=== PATIENT | female | born 1960 | race Two or more races ===

== ENCOUNTER 2019-03-02 17:17 | Emergency (ER) | payer MEDICARE ==
--- NOTE | 2019-03-02 19:20 | CR ---
Indication: Cough. Congestion. Technique: PA and lateral views the chest. Comparison: None Findings: The heart is normal in size. The lungs are hyperinflated. Mild diffusely increased interstitial opacities are identified bilaterally. No focal infiltrate, pleural effusion, or pneumothorax is identified. Impression: No focal infiltrate identified Dictated by Nneka Sofia MD @ Mar 02 2019 7:16PM Signed by Dr. Nneka Sofia @ Mar 02 2019 7:18PM
--- NOTE | 2019-03-02 19:23 | EDM.PDOC ---
ED HPI GENERAL MEDICAL PROBLEM - General Chief Complaint: ENT Problem Stated Complaint: EAR PAIN Time Seen by Provider: 03/02/19 18:42 Source of Information: Reports: Patient History Limitations: Reports: No Limitations - History of Present Illness INITIAL COMMENTS - FREE TEXT/NARRATIVE: HISTORY AND PHYSICAL: History of present illness: Patient is a 58-year-old female who presents to the ED today with concern of bilateral ear pain. Patient states she has been having right ear pain over the past several weeks but has ignored this. Patient states she has had drainage out of the right ear. Patient states starting yesterday she began having left ear pain as well. Patient states she has taken [id number] ibuprofen without relief of symptoms. Patient denies any other symptoms or concerns. Patient denies fever, chills, chest pain, shortness of breath, or cough. Denies headache, neck stiff ness, change in vision, syncope, or near syncope. Denies nausea, vomiting, abdominal pain, diarrhea, constipation, or dysuria. Has not noted any blood in urine or stool. Patient has been eating and drinking appropriately. Review of systems: As per history of present illness and below otherwise all systems reviewed and negative. Past medical history: As per history of present illness and as reviewed below otherwise noncontributory. Surgical history: As per history of present illness and as reviewed below otherwise noncontributory. Social history: See social history for further information Family history: As per history of present illness and as reviewed below otherwise noncontributory. Physical exam: General: Patient is alert, oriented, and in no acute distress. Patient sitting comfortably on exam table. HEENT: Atraumatic, normocephalic, pupils equal and reactive bilaterally, negative for conjunctival pallor or scleral icterus, mucous membranes moist, left TM is erythematous and bulging, right TM is not erythematous but does have a perforation., Throat clear, neck supple, nontender, trachea midline. No drooling or trismus noted. No meningeal signs. No hot potato voice noted. Lungs: Clear to auscultation, breath sounds equal bilaterally, chest nontender. Heart: S1S2, regular rate and rhythm without overt murmur Abdomen: Soft, nondistended, nontender. Negative for masses or hepatosplenomegaly. Negative for costovertebral tenderness. Pelvis: Stable nontender. Genitourinary: Deferred. Rectal: Deferred. Skin: Intact, warm, dry. No lesions or rashes noted. Extremities: Atraumatic, negative for cords or calf pain. Neurovascular unremarkable. Neuro: Awake, alert, oriented. Cranial nerves II through XII unremarkable. Cerebellum unremarkable. Motor and sensory unremarkable throughout. Exam nonfocal. Notes: Discussed importance for follow-up with a primary care provider. Voices understanding and is agreeable to plan of care. Denies any further questions or concerns at this time. Diagnostics: Influenza, Strep Therapeutics: None Prescription: Tramadol #10 Amoxicillin Impression: Left acute otitis media Right TM perforation Plan: 1. Take medication as prescribed. You can also alternate ibuprofen and Tylenol as directed for pain and discomfort. 2. Follow-up with your primary care provider as discussed. Return to the ED as needed and as discussed. Definitive disposition and diagnosis as appropriate pending reevaluation and review of above. Bilateral ears Pain Score (Numeric/FACES): 8 - Related Data Allergies Allergy/AdvReac Type Severity Reaction Status Date / Time morphine Allergy Nausea Verified 03/02/19 18:02 Home Meds: Home Meds Albuterol [Ventolin HFA] 1 puff .XX ASDIRECTED 03/02/19 [History] Amoxicillin 1,000 mg PO BID 7 Days #28 tab 03/02/19 [Rx] Aspirin 81 mg PO DAILY 03/02/19 [History] Fluticasone/Salmeterol [Advair 250-50 Diskus] 1 each IH ASDIRECTED 03/02/19 [ History] Nitroglycerin [Nitrostat] 0.4 mg SL ASDIRECTED 03/02/19 [History] Omeprazole 20 mg PO ONETIME 03/02/19 [History] Pramipexole [Mirapex] 0.25 mg PO BID 03/02/19 [History] Tocilizumab [Actemra] 162 mg SQ ASDIRECTED 03/02/19 [History] Venlafaxine HCl [Venlafaxine ER] 150 mg PO ASDIRECTED 03/02/19 [History] atorvaSTATin [Lipitor] 40 mg PO BEDTIME 03/02/19 [History] oxyCODONE 10 mg PO ASDIRECTED 03/02/19 [History] predniSONE [Prednisone] 5 mg PO ASDIRECTED 03/02/19 [History] traMADol HCl [Tramadol HCl] 50 mg PO Q6H PRN #10 tablet 03/02/19 [Rx] Past Medical History Cardiovascular History: Reports: NH, Stents Respiratory History: Reports: Asthma Musculoskeletal History: Reports: Arthritis, RA - Infectious Disease History Infectious Disease History: Reports: MRSA - Past Surgical History HEENT Surgical History: Reports: Tonsillectomy GI Surgical History: Reports: Appendectomy, Bariatric Procedure, Cholecystectomy Musculoskeletal Surgical History: Reports: Arthroscopic Knee, Hip Replacement, Knee Replacement Social & Family History - Family History Family Medical History: Noncontributory - Tobacco Use Smoking Status *Q: Current Every Day Smoker Years of Tobacco use: 30 Packs/Tins Daily: 0.1 - Caffeine Use Caffeine Use: Reports: None, Coffee - Recreational Drug Use Recreational Drug Use: No ED ROS GENERAL - Review of Systems Review Of Systems: Comprehensive ROS is negative, except as noted in HPI. ED EXAM, GENERAL - Physical Exam Exam: See Below (see dictation) Course - Vital Signs Last Recorded V/S: Last Vital Signs Temp 98.1 F 03/02/19 18:08 Pulse 82 03/02/19 18:08 Resp 16 03/02/19 18:08 BP 140/82 03/02/19 18:08 Pulse Ox 97 03/02/19 18:08 - Orders/Labs/Meds Orders: Active Orders 24 hr Category Date Time Status Chest 2V [CR] Stat Exams 03/02/19 18:47 Taken CULTURE STREP A CONFIRMATION [RM] Stat Lab 03/02/19 18:40 Results STREP SCRN A RAPID W CULT CONF [RM] Stat Lab 03/02/19 18:40 Results Departure - Departure Time of Disposition: 19:21 Disposition: Home, Self-Care 01 Clinical Impression: Otitis media Qualifiers: Otitis media type: suppurative Chronicity: acute Laterality: left Recurrence: not specified as recurrent Spontaneous tympanic membrane rupture: without spontaneous rupture Qualified Code(s): H66.002 - Acute suppurative otitis media without spontaneous rupture of ear drum, left ear Tympanic membrane perforation Qualifiers: Laterality: right Qualified Code(s): H72.91 - Unspecified perforation of tympanic membrane, right ear - Discharge Information Prescriptions: Amoxicillin 1,000 mg PO BID 7 Days #28 tab traMADol HCl [Tramadol HCl] 50 mg PO Q6H PRN #10 tablet PRN Reason: Pain (Severe 7-10) Referrals: Oscar Hewitt MD [Primary Care Provider] - Additional Instructions: The following information is given to patients seen in the emergency department who are being discharged to home. This information is to outline your options for follow-up care. We provide all patients seen in our emergency department with a follow-up referral. The need for follow-up, as well as the timing and circumstances, are variable depending upon the specifics of your emergency department visit. If you don't have a primary care physician on staff, we will provide you with a referral. We always advise you to contact your personal physician following an emergency department visit to inform them of the circumstance of the visit and for follow-up with them and/or the need for any referrals to a consulting specialist. The emergency department will also refer you to a specialist when appropriate. This referral assures that you have the opportunity for follow-up care with a specialist. All of these measure are taken in an effort to provide you with optimal care, which includes your follow-up. Under all circumstances we always encourage you to contact your private physician who remains a resource for coordinating your care. When calling for follow-up care, please make the office aware that this follow-up is from your recent emergency room visit. If for any reason you are refused follow-up, please contact the [facility] Emergency Department at and asked to speak to the emergency department charge nurse. [facility] [address] [place] [id number] [facility] [address] [place] [id number] 1. Take medication as prescribed. You can also alternate ibuprofen and Tylenol as directed for pain and discomfort. 2. Follow-up with your primary care provider as discussed. Return to the ED as needed and as discussed. Sepsis Event Note - Evaluation Sepsis Screening Result: No Definite Risk - Focused Exam Vital Signs: Vital Signs Temp Pulse Resp BP Pulse Ox 03/02/19 18:08 98.1 F 82 16 140/82 97 Date Exam was Performed: 03/02/19 Time Exam was Performed: 19:20 - My Orders Last 24 Hours: My Active Orders 03/02/19 18:40 CULTURE STREP A CONFIRMATION [RM] Stat STREP SCRN A RAPID W CULT CONF [RM] Stat 03/02/19 18:47 Chest 2V [CR] Stat - Assessment/Plan Last 24 Hours: My Active Orders 03/02/19 18:40 CULTURE STREP A CONFIRMATION [RM] Stat STREP SCRN A RAPID W CULT CONF [RM] Stat 03/02/19 18:47 Chest 2V [CR] Stat
== END 2019-03-02 19:40 | disposition home or self-care (01) ==
LOC: MW.ED 17:17
DX: H66.002 Acute suppurative otitis media without spontaneous rupture of ear drum, left ear (principal); H72.91 Unspecified perforation of tympanic membrane, right ear; F17.210 Nicotine dependence, cigarettes, uncomplicated; I25.2 Old myocardial infarction; J45.909 Unspecified asthma, uncomplicated; M06.9 Rheumatoid arthritis, unspecified; M19.90 Unspecified osteoarthritis, unspecified site; Z98.890 Other specified postprocedural states; Z90.49 Acquired absence of other specified parts of digestive tract; Z98.84 Bariatric surgery status; Z79.899 Other long term (current) drug therapy
CPT/HCPCS: 71046; 71046-26; 87081; 87804; 87880-QW; 99283; 99283-25

== ENCOUNTER 2019-11-29 19:58 | Emergency (ER) | payer MEDICARE, MEDICAID, OTHER ==
[2019-11-29] MEDS ORDERED: Aspirin 81 MG Tab.Chew PO ONE (20:32)
[2019-11-29] MEDS ORDERED: Sodium Chloride 0.9% 2.5 ML Syringe FLUSH PRN (20:32)
[2019-11-29] MEDS ORDERED: Sodium Chloride 0.9% 10 ML Syringe FLUSH PRN (20:32)
[2019-11-29 21:37] LABS: CARBON DIOXIDE,CO2 26.7 mmol/L (21.0-32.0); POTASSIUM,K 3.7 mmol/L (3.5-5.1)
--- NOTE | 2019-11-29 21:58 | CR ---
HISTORY: Shortness of breath and CHF. TECHNIQUE: One view of the chest. COMPARISON: 03/02/2019. FINDINGS: Enlargement of the cardiac silhouette. There is no focal lung infiltrate or pulmonary edema. No pneumothorax or pleural effusion. Degenerative changes of the shoulder regions. IMPRESSION: 1. Enlargement of the cardiac silhouette. 2. No focal lung infiltrate or pulmonary edema. Dictated by Miguel Monroe MD @ 11/29/2019 9:56:09 PM Dictated by: Miguel Monroe MD @ 11/29/2019 21:56:42 (Electronically Signed)
[2019-11-29] MEDS ORDERED: Furosemide 40 MG/4 ML VIAL IVPUSH ONE (22:44)
--- NOTE | 2019-11-30 00:38 | EDM.PDOC ---
ED HPI GENERAL MEDICAL PROBLEM - General Chief Complaint: Cardiovascular Problem Stated Complaint: SICK Time Seen by Provider: 11/29/19 20:18 - History of Present Illness INITIAL COMMENTS - FREE TEXT/NARRATIVE: CHIEF COMPLAINT(S): "Cold for 2 weeks." HISTORY OF PRESENT ILLNESS: This is a 59-year-old woman with a past medical history of rheumatoid arthritis and prior history of CAD status post stent over a decade ago who comes to the emergency department with a chief complaint of "cold for 2 weeks." The patient states that for approximately 2 weeks now she has been experiencing a cold for which she describes she has been experiencing a cough with yellowish sputum. She denies any runny nose, earache, sore throat. She denies any contact with anybody with coronavirus. In addition over the last 2 weeks he has been experiencing chest discomfort especially when walking. She states that she is also experiencing shortness of breath especially on walking and orthopnea. She that states that she has had 2 increase her number of pillows. She states that she has lower extremity edema and feels like her legs are very tight. She states that she is never had this much edema before. She denies any abdominal edema. She denies any prior history of DVT or PE. She denies any recent travel or surgeries. REVIEW OF SYSTEMS: Constitutional: Denies fever, chills. Eyes: Denies eye pain Ears, Nose, Mouth, & Throat: Denies earache, sore throat, runny nose Cardiovascular: Positive for chest discomfort, lower extremity edema Respiratory: Positive for shortness of breath, orthopnea, exertional dyspnea Gastrointestinal: Denies Nausea, vomiting, diarrhea, hematochezia. Genitourinary: Denies hematuria Skin:Denies a rash Neurological: Denies blurred vision Psychiatric: Denies depression PAST MEDICAL HISTORY: As per history of present illness and as reviewed below otherwise noncontributory. SURGICAL HISTORY: As per history of present illness and as reviewed below otherwise noncontributory. SOCIAL HISTORY: As per history of present illness and as reviewed below otherwise noncontributory. FAMILY HISTORY: As per history of present illness and as reviewed below otherwise noncontributory. EXAMINATION OF ORGAN SYSTEMS/BODY AREAS: Constitutional: Blood pressure was 127/83, heart rate 84, respiratory rate 18 with an oxygen saturation 98% on room air. General: Well-appearing woman who is in no acute distress Psychiatric: Appropriate mood and affect. Eyes: No scleral icterus or conjunctival erythema ENMT: Moist mucous membranes. No pharyngeal erythema bilateral clear nasal drainage. Cardiovascular: Regular, rate, and rhythym. No gallops, murmurs, or rubs. Bilateral upper extremity pulses symmetric and intact. No JVD. There is 3+ pitting edema to the mid thigh respiratory: Lungs clear to auscultation bilaterally. No wheezes, rales, or rhonchi. Speaking in full sentences Gastrointestinal: Soft, non-tender, non-distended. Normoactive bowel sounds Genitourinary: No suprapubic tenderness Musculoskeletal: Normal range of motion. Skin: No lesions or abrasions. Neurological: Alert, GCS 15 MEDICAL DECISION MAKING AND COURSE IN THE ED WITH INTERPRETATION/REVIEW OF DIAGNOSTIC STUDIES: This is a 59-year-old woman with a past medical history of rheumatoid arthritis and prior history of CAD who comes to the emergency department with 2 weeks of yellow productive cough and chest discomfort associated with orthopnea and exertional dyspnea with an exam revealing pretty severe pitting edema. In the setting that this patient has a history of CAD I am concerned about ACS, CHF, pneumonia. Will obtain labs including CBC, CMP, troponin, magnesium, type and screen. Will obtain a chest x-ray. We also obtain an EKG. Given that the patient will likely need to be admitted I will obtain a coronavirus swab. Twelve-lead EKG interpreted by myself. Normal sinus rhythm at a rate of 83beats per minute. Normal axis. PA interval is 145ms. QRS duration is 145ms. ST segments are normal without elevations or depressions. There is a left bundle branch block throughout. There are no prior EKGs in our system to correlate with. This EKG does not meet scar Bosa criteria. Interpretation: Sinus rhythm with left bundle-branch block Laboratory: CBC reveals a microcytic anemia with a hemoglobin of 7.4 and hematocrit of 26.3. There is thrombocytosis with a platelet count of 572. INR is 1.34. CMP reveals transaminitis with an AST of 109 and ALT of 152. Troponin x1 is 0.065. BNP is 1614. Coronavirus is negative. The radiological images were viewed by myself along with reading the report from the radiologist. Chest x-ray reveals cardiomegaly without any evidence of pulmonary edema or lung infiltrate. After labs I discussed the results with the patient. At this time given her anemia I did have a discussion with the patient. She denies any vaginal bleeding, hematemesis, melena, or hematochezia. She states that she does have a history of chronic anemia. She does not take any supplements for this. At this time I did discuss with her that given her new onset CHF and elevated troponin like to transfer her for further work-up. She was amenable to this plan. Given concern of new left bundle branch block with increased troponin this could be a STEMI equivalent even though the EKG does not meet scar Bosa criteria. Therefore I contacted [facility] and spoke with the pathology laboratory technologist on-call Dr. Valladares who stated that this is not a STEMI equivalent. [facility] is not accepting patients at this time. Therefore I called [facility] and spoke with pathology laboratory technologist Dr. Miller who would like the patient transferred and admitted under the hospitalist. I did speak to the hospitalist Dr. Varela who accepted the patient. At this time with discussion with [facility] will not start the patient on heparin given the patient's anemia. DISPOSITION: The patient was transferred to [facility] CONDITION: Serious PROCEDURES: None FINAL IMPRESSION(S)/DIAGNOSES: 1. Acute new onset CHF 2. Acute elevated troponin, possible ACS 3. Chronic anemia Chris Magana M.D. - Related Data Allergies Allergy/AdvReac Type Severity Reaction Status Date / Time gabapentin Allergy Hives Verified 11/29/19 20:15 morphine Allergy Nausea Verified 11/29/19 20:15 Home Meds: Home Meds Albuterol [Ventolin HFA] 1 puff .XX ASDIRECTED 03/02/19 [History] Aspirin 81 mg PO DAILY 03/02/19 [History] Fluticasone Propion/Salmeterol [Advair 250-50 Diskus] 1 each IH ASDIRECTED 03/02/19 [History] Nitroglycerin [Nitrostat] 0.4 mg SL ASDIRECTED 03/02/19 [History] Omeprazole 20 mg PO ONETIME 03/02/19 [History] Pramipexole [Mirapex] 0.25 mg PO BID 03/02/19 [History] Tocilizumab [Actemra] 162 mg SQ ASDIRECTED 03/02/19 [History] Venlafaxine HCl [Venlafaxine ER] 75 mg PO ASDIRECTED 03/02/19 [History] atorvaSTATin [Lipitor] 40 mg PO BEDTIME 03/02/19 [History] predniSONE [Prednisone] 5 mg PO ASDIRECTED 03/02/19 [History] Past Medical History Cardiovascular History: Reports: MA, Stents Respiratory History: Reports: Asthma, COPD Genitourinary History: Reports: None Musculoskeletal History: Reports: Arthritis, RA Neurological History: Reports: None Psychiatric History: Reports: None Endocrine/Metabolic History: Reports: None Hematologic History: Reports: None Oncologic (Cancer) History: Reports: None Dermatologic History: Reports: None - Infectious Disease History Infectious Disease History: Reports: Chicken Pox, MRSA - Past Surgical History HEENT Surgical History: Reports: Tonsillectomy GI Surgical History: Reports: Appendectomy, Bariatric Procedure, Cholecystectomy Other GI Surgeries/Procedures: pt reports mesh in stomache for hole in stomach Musculoskeletal Surgical History: Reports: Arthroscopic Knee, Hip Replacement, Knee Replacement Social & Family History - Family History Family Medical History: Noncontributory - Tobacco Use Smoking Status *Q: Current Every Day Smoker Years of Tobacco use: 40 Packs/Tins Daily: 1 - Caffeine Use Caffeine Use: Reports: None, Coffee - Recreational Drug Use Recreational Drug Type: Reports: Marijuana/Hashish ED ROS GENERAL - Review of Systems Review Of Systems: See Below ED EXAM, GENERAL - Physical Exam Exam: See Below Course - Vital Signs Last Recorded V/S: Last Vital Signs Temp 34.4 C L 11/29/19 22:26 Pulse 85 11/29/19 22:26 Resp 22 H 11/29/19 22:26 BP 121/81 11/29/19 22:26 Pulse Ox 99 11/29/19 22:26 - Orders/Labs/Meds Orders: Active Orders 24 hr Category Date Time Status Cardiac Monitoring [RC] . DIRECTED Care 11/29/19 20:32 Active EKG 12 Lead [EKG Documentation Completion] [RC] STAT Care 11/29/19 21:24 Active Pulse Oximetry [RC] ASDIRECTED Care 11/29/19 20:32 Active Sodium Chloride 0.9% [Saline Flush] Med 11/29/19 20:32 Active 10 ml FLUSH ASDIRECTED PRN Sodium Chloride 0.9% [Saline Flush] Med 11/29/19 20:32 Active 2.5 ml FLUSH ASDIRECTED PRN Saline Lock Insert [OM.PC] Stat Oth 11/29/19 20:32 Ordered Medication Orders Sodium Chloride (Saline Flush) 10 ml FLUSH ASDIRECTED PRN PRN Reason: Keep Vein Open Sodium Chloride (Saline Flush) 2.5 ml FLUSH ASDIRECTED PRN PRN Reason: Keep Vein Open Labs: Laboratory Tests 11/29/19 11/29/19 11/29/19 Range/Units 20:43 20:53 20:53 WBC 7.45 (4.0-11.0) K/uL RBC 3.94 L (4.30-5.90) M/uL Hgb 7.4 L (12.0-16.0) g/dL Hct 26.3 L (36.0-46.0) % MCV 66.8 L (80.0-98.0) fL MCH 18.8 L (27.0-32.0) pg MCHC 28.1 L (31.0-37.0) g/dL RDW Std Deviation 42.6 (28.0-62.0) fl RDW Coeff of Conor 18 H (11.0-15.0) % Plt Count 572 H (150-400) K/uL MPV 8.80 (7.40-12.00) fL Neut % (Auto) 69.8 (48.0-80.0) % Lymph % (Auto) 14.4 L (16.0-40.0) % [place] % (Auto) 13.4 (0.0-15.0) % Eos % (Auto) 2.0 (0.0-7.0) % Baso % (Auto) 0.4 (0.0-1.5) % Neut # (Auto) 5.2 (1.4-5.7) K/uL Lymph # (Auto) 1.1 (0.6-2.4) K/uL [place] # (Auto) 1.0 H (0.0-0.8) K/uL Eos # (Auto) 0.2 (0.0-0.7) K/uL Baso # (Auto) 0.0 (0.0-0.1) K/uL Nucleated RBC % 0.7 /100WBC Nucleated RBCs # 0 K/uL INR 1.34 Sodium (136-145) mmol/L Potassium (3.5-5.1) mmol/L Chloride (98-107) mmol/L Carbon Dioxide (21.0-32.0) mmol/L BUN (7.0-18.0) mg/dL Creatinine (0.6-1.0) mg/dL Est Cr Clr Drug Dosing mL/min Estimated GFR (MDRD) ml/min Glucose (74-106) mg/dL Calcium (8.5-10.1) mg/dL Total Bilirubin (0.2-1.0) mg/dL AST (15-37) IU/L ALT (14-63) IU/L Alkaline Phosphatase (46-116) U/L Troponin I (0.000-0.056) ng/mL B-Natriuretic Peptide (<100) PG/ML Total Protein (6.4-8.2) g/dL Albumin (3.4-5.0) g/dL Globulin (2.6-4.0) g/dL Albumin/Globulin Ratio (0.9-1.6) SARS-CoV-2 RNA (BREANA) NEGATIVE (NEGATIVE) Blood Type Antibody Screen 11/29/19 11/29/19 11/29/19 Range/Units 20:53 20:59 20:59 WBC (4.0-11.0) K/uL RBC (4.30-5.90) M/uL Hgb (12.0-16.0) g/dL Hct (36.0-46.0) % MCV (80.0-98.0) fL MCH (27.0-32.0) pg MCHC (31.0-37.0) g/dL RDW Std Deviation (28.0-62.0) fl RDW Coeff of Conor (11.0-15.0) % Plt Count (150-400) K/uL MPV (7.40-12.00) fL Neut % (Auto) (48.0-80.0) % Lymph % (Auto) (16.0-40.0) % [place] % (Auto) (0.0-15.0) % Eos % (Auto) (0.0-7.0) % Baso % (Auto) (0.0-1.5) % Neut # (Auto) (1.4-5.7) K/uL Lymph # (Auto) (0.6-2.4) K/uL [place] # (Auto) (0.0-0.8) K/uL Eos # (Auto) (0.0-0.7) K/uL Baso # (Auto) (0.0-0.1) K/uL Nucleated RBC % /100WBC Nucleated RBCs # K/uL INR Sodium 137 (136-145) mmol/L Potassium 3.7 (3.5-5.1) mmol/L Chloride 103 (98-107) mmol/L Carbon Dioxide 26.7 (21.0-32.0) mmol/L BUN 18 (7.0-18.0) mg/dL Creatinine 1.0 (0.6-1.0) mg/dL Est Cr Clr Drug Dosing 58.11 mL/min Estimated GFR (MDRD) 57.1 ml/min Glucose 84 (74-106) mg/dL Calcium 7.5 L (8.5-10.1) mg/dL Total Bilirubin 0.6 (0.2-1.0) mg/dL AST 109 H (15-37) IU/L ALT 152 H (14-63) IU/L Alkaline Phosphatase 202 H (46-116) U/L Troponin I 0.065 H* (0.000-0.056) ng/mL B-Natriuretic Peptide 1614 H (<100) PG/ML Total Protein 6.3 L (6.4-8.2) g/dL Albumin 3.1 L (3.4-5.0) g/dL Globulin 3.2 (2.6-4.0) g/dL Albumin/Globulin Ratio 1.0 (0.9-1.6) SARS-CoV-2 RNA (BREANA) (NEGATIVE) Blood Type A POSITIVE Antibody Screen NEGATIVE Meds: Medications Generic Name Dose Route Start Last Admin Trade Name Freq PRN Reason Stop Dose Admin Sodium Chloride 10 ml 11/29/19 20:32 Saline Flush FLUSH ASDIRECTED PRN Keep Vein Open Sodium Chloride 2.5 ml 11/29/19 20:32 Saline Flush FLUSH ASDIRECTED PRN Keep Vein Open Discontinued Medications Generic Name Dose Route Start Last Admin Trade Name Freq PRN Reason Stop Dose Admin Aspirin 324 mg 11/29/19 20:32 11/29/19 20:45 Aspirin PO 11/29/19 20:33 324 mg ONETIME ONE Administration Furosemide 40 mg 11/29/19 22:44 11/29/19 23:10 Lasix IVPUSH 11/29/19 22:45 40 mg NOW ONE Administration Departure - Departure Time of Disposition: 00:36 Disposition: DC/Tfer to Other 70 Reason for Transfer *Q: Other (New Onset CHF) Condition: Serious Clinical Impression: Elevated troponin, Left bundle branch block (LBBB), Transaminitis Congestive heart failure Qualifiers: Heart failure type: unspecified Heart failure chronicity: acute Qualified Code(s): I50.9 - Heart failure, unspecified Referrals: Veronica Joya MD [Primary Care Provider] - Sepsis Event Note (ED) - Evaluation Sepsis Screening Result: No Definite Risk - Focused Exam Vital Signs: Vital Signs Temp Pulse Resp BP Pulse Ox 11/29/19 22:26 34.4 C L 85 22 H 121/81 99 11/29/19 22:18 83 132/83 99 11/29/19 22:03 81 18 134/78 99 11/29/19 21:49 81 18 133/82 99 11/29/19 21:34 87 20 123/93 H 97 11/29/19 21:15 84 18 127/83 98 11/29/19 20:19 36.4 C 93 24 H 151/94 H 98 - My Orders Last 24 Hours: My Active Orders 11/29/19 20:32 Cardiac Monitoring [RC] . DIRECTED Pulse Oximetry [RC] ASDIRECTED Sodium Chloride 0.9% [Saline Flush] 10 ml FLUSH ASDIRECTED PRN Sodium Chloride 0.9% [Saline Flush] 2.5 ml FLUSH ASDIRECTED PRN Saline Lock Insert [OM.PC] Stat 11/29/19 21:24 EKG 12 Lead [EKG Documentation Completion] [RC] STAT - Assessment/Plan Last 24 Hours: My Active Orders 11/29/19 20:32 Cardiac Monitoring [RC] . DIRECTED Pulse Oximetry [RC] ASDIRECTED Sodium Chloride 0.9% [Saline Flush] 10 ml FLUSH ASDIRECTED PRN Sodium Chloride 0.9% [Saline Flush] 2.5 ml FLUSH ASDIRECTED PRN Saline Lock Insert [OM.PC] Stat 11/29/19 21:24 EKG 12 Lead [EKG Documentation Completion] [RC] STAT
== END 2019-11-29 23:20 | disposition other institution (70) ==
LOC: MW.ED 19:58
DX: I50.9 Heart failure, unspecified (principal); R79.89 Other specified abnormal findings of blood chemistry; R74.01 Elevation of levels of liver transaminase levels; D64.9 Anemia, unspecified; I44.7 Left bundle-branch block, unspecified; J44.9 Chronic obstructive pulmonary disease, unspecified; I25.10 Atherosclerotic heart disease of native coronary artery without angina pectoris; I25.2 Old myocardial infarction; M06.9 Rheumatoid arthritis, unspecified; F17.210 Nicotine dependence, cigarettes, uncomplicated; Z95.5 Presence of coronary angioplasty implant and graft; Z88.5 Allergy status to narcotic agent; Z88.8 Allergy status to other drugs, medicaments and biological substances; Z79.82 Long term (current) use of aspirin; Z79.899 Other long term (current) drug therapy; Z20.828 Contact with and (suspected) exposure to other viral communicable diseases
CPT/HCPCS: 36415; 51702; 71045; 80053; 83880; 84484; 85025; 85610; 86850; 86900; 86901; 93005; 96374; 99285; A9270; J1940; U0002; 93010

== ENCOUNTER 2020-11-01 23:22 | Emergency (ER) | payer MEDICARE ==
[2020-11-02] MEDS ORDERED: Sodium Chloride 0.9% 2.5 ML Syringe FLUSH PRN (00:26)
[2020-11-02] MEDS ORDERED: Sodium Chloride 0.9% 10 ML Syringe FLUSH PRN (00:26)
[2020-11-02] MEDS ORDERED: Furosemide 40 MG/4 ML VIAL IVPUSH ONE (00:27)
[2020-11-02] MEDS ORDERED: Ondansetron 4 MG/2 ML SDV IVPUSH ONE (00:52)
[2020-11-02 01:24] LABS: BLOOD UREA NITROGEN,BUN 13 mg/dL (7.0-18.0); CARBON DIOXIDE,CO2 26.6 mmol/L (21.0-32.0); CHLORIDE,CL 103 mmol/L (98-107); GLUCOSE RANDOM 102 mg/dL (74-106); POTASSIUM,K 4.2 mmol/L (3.5-5.1); SODIUM,NA 138 mmol/L (136-145)
[2020-11-02] MEDS ORDERED: Iopamidol 755 MG/ML 500 ML Multipack Bottle IVPUSH ONE (01:45)
--- NOTE | 2020-11-02 01:45 | CR ---
INDICATION: Shortness of breath. COMPARISON: 11/29/2027 chest radiograph. FINDINGS/IMPRESSION: Portable AP chest radiograph. There is mild enlargement of the cardiac silhouette, similar to the previous exam. Pulmonary vasculature is borderline congested. No pleural effusions are noted. No focal lung consolidation is seen. Degenerative changes are again seen in both shoulders. Dictated by Jem Fowler MD @ 11/02/2020 1:42:28 AM Dictated by: Jem Fowler MD @ 11/02/2020 01:43:31 (Electronically Signed)
--- NOTE | 2020-11-02 02:52 | CT ---
INDICATION: Shortness of breath with elevated D-dimer. COMPARISON: Chest radiograph from earlier today. TECHNIQUE: CT examination of the chest was performed with the uneventful intravenous administration of 75 cc of Isovue 370 while 1.0 and 1.5 mm thick axial sections were obtained through the pulmonary arteries. Please note that all CT scans at this facility use dose modulation, iterative reconstruction, and/or weight-based dosing when appropriate to reduce radiation dose to as low as reasonably achievable. FINDINGS: : There is no sign of pulmonary embolism, with normal enhancement and branching of the pulmonary arteries. There is mild patchy ground-glass pulmonary density with a perihilar distribution consistent with mild congestive failure. There is no sign of any pleural effusion. There is no sign of mediastinal or hilar mass or adenopathy. The heart is mildly enlarged with four-chamber dilatation. There is severe LAD and moderate LCX and RCA coronary calcification. There is age appropriate appearance of the thoracic aorta and ascending great vessels. There is no sign of supraclavicular or axillary mass or adenopathy. The visualized superior liver, spleen, pancreas, and adrenals are normal in appearance. There is a nonobstructive 3 millimeter calculus in the interpolar left kidney. There is mild dilatation of the collecting systems in both kidneys along with mild dilatation of the proximal ureters bilaterally, suggesting bilateral hydronephrosis and hydroureter. There are several lines of surgical kenia in the gastric fundus consistent with gastric bypass surgery. A small bowl anastamosis is seen in the left upper quadrant with no sign of stricture. There is a small hiatal hernia. The distal stomach, the rest of the loops of small bowel, and colon in the superior abdomen are normal in appearance. Surgical clips are seen in the right upper quadrant from cholecystectomy. There is no sign of biliary ductal dilatation. There is moderate disc degenerative disease in the inferior thoracic spine. There is mild scoliosis of the inferior thoracic spine convex towards the right. IMPRESSION: No sign of pulmonary embolism. Mild patchy ground-glass pulmonary density with a perihilar distribution consistent with mild congestive failure. Mild cardiomegaly with triple-vessel coronary calcification. Status post gastric bypass surgery. Status post cholecystectomy with no sign of biliary ductal dilatation. Findings of bilateral hydronephrosis and proximal hydroureter. Mild nonobstructive left nephrolithiasis. Please note that all CT scans at this facility use dose modulation, iterative reconstruction, and/or weight-based dosing when appropriate to reduce radiation dose to as low as reasonably achievable. Dictated by Yasmany Galindo MD @ 11/02/2020 2:50:56 AM (Electronically Signed)
--- NOTE | 2020-11-02 03:43 | EDM.PDOC ---
ED HPI GENERAL MEDICAL PROBLEM - General Chief Complaint: Respiratory Problem Stated Complaint: SHORT OF BREATH, HEADACHE, ABDOMINAL PAIN Time Seen by Provider: 11/01/20 23:53 - History of Present Illness INITIAL COMMENTS - FREE TEXT/NARRATIVE: HISTORY AND PHYSICAL: History of present illness: This is a 60-year-old female who has a history significant for hypertension, congestive heart failure, on Lasix, who presents ER today secondary to increased shortness of breath over the last 2 to 3 days with generalized malaise, cough, congestion, vomiting, and diffuse body aches. Patient reports she has had some increased wound to her lower extremities. Patient denies any sore throat. Patient reports tactile fevers. Patient denies any shakes or chills. Patient denies any abdominal pain or discomfort. Patient denies any chest pain or pressure however she reports occasional discomfort with deep inspiration and cough. Patient reports no exertional chest pain. Patient reports that she does have shortness of breath with exertion. Patient reports that she has been compliant with all her medications. Review of systems: As per history of present illness and below otherwise all systems reviewed and negative. Past medical history: As per history of present illness and as reviewed below otherwise noncontributory. Surgical history: As per history of present illness and as reviewed below otherwise noncontributory. Social history: No reported history of drug abuse. Family history: As per history of present illness and as reviewed below otherwise noncontributory. Physical exam: This patient was seen and evaluated during the 2019 SARS-CoV-2 novel coronavirus pandemic period. Community viral transmission is ongoing at time of this encounter and the emergency department is operating under pandemic response procedures. Constitutional: Patient is oriented to person, place, and time. Appears well- developed and well-nourished. No distress. HEENT: Moist mucous membranes Head: Normocephalic and atraumatic Eyes: Right eye exhibits no discharge. Left eye exhibits no discharge. No scleral icterus Neck: Normal range of motion. No tracheal deviation present. Cardiovascular: Normal rate and regular rhythm. Pulmonary: Effort normal, no respiratory distress. No wheezing or rhonchi. Patient does have some bibasilar rales. Abdominal: No distention Musculoskeletal: Normal range of motion. 1-2+ bipedal edema bilaterally and equal Neurologic: Alert and oriented to person, place and time. Skin: [place], warm and dry. Psychiatric: Normal mood and affect. Behavior is normal. Judgment and thought content normal. Nursing note and vital signs have been reviewed Diagnostics: CBC, CMP, troponin, Covid all within normal limits. Patient's BNP is markedly elevated however does appear that she has chronically elevated BNP in the past. Therapeutics: Lasix 80 mg IV Assessment and plan: 60-year-old female with a history significant for congestive heart failure who presents ER today with increased shortness of breath. Patient's Covid test is negative. Patient does have sinus symptoms consistent with a viral illness as well. Patient's chest x-ray did show some increased interstitial markings. Patient's D-dimer was elevated so CTA was obtained which was consistent with CHF. While in the ED the patient was given Lasix 80 mg IV given her symptoms of lower extremity edema and bibasilar rales. Patient reports that she has had a significant amount of urinary output while she was here in the ED and feels exceedingly better. Patient has been resting flat in bed comfortably. Patient will be instructed to follow-up with her primary care physician for further evaluation of her congestive heart failure and her diuretic doses. At this time, the patient is requesting to be discharged home and does not feel that she needs to be here any further. I have recommended that she states that we can continue diuresing her but she feels much improved and would like to be discharged with her is here in the waiting room. Reassessment at the time of disposition demonstrates that the patient is in no acute distress. The patient has remained stable throughout the entire ED visit and is without objective evidence for acute process requiring urgent intervention or hospitalization. The patient is stable for discharge, counseling is provided as documented above, discussed symptomatic treatment and specific conditions for return. I have spoken with the patient/caregiver and discussed todays findings, in addition to providing specific details for the plan of care. Questions are answered and there is agreement with the plan. Definitive disposition and diagnosis as appropriate pending reevaluation and review of above. Chest Pain Score (Numeric/FACES): 7 - Related Data Allergies Allergy/AdvReac Type Severity Reaction Status Date / Time gabapentin Allergy Hives Verified 11/29/19 20:15 morphine Allergy Nausea Verified 11/29/19 20:15 Home Meds: Home Meds Albuterol [Ventolin HFA] 1 puff .XX ASDIRECTED 03/02/19 [History] Aspirin 81 mg PO DAILY 03/02/19 [History] Fluticasone Propion/Salmeterol [Advair 250-50 Diskus] 1 each IH ASDIRECTED 03/02/19 [History] Nitroglycerin [Nitrostat] 0.4 mg SL ASDIRECTED 03/02/19 [History] Omeprazole 20 mg PO ONETIME 03/02/19 [History] Pramipexole [Mirapex] 0.25 mg PO BID 03/02/19 [History] Tocilizumab [Actemra] 162 mg SQ ASDIRECTED 03/02/19 [History] Venlafaxine HCl [Venlafaxine ER] 75 mg PO ASDIRECTED 03/02/19 [History] atorvaSTATin [Lipitor] 40 mg PO BEDTIME 03/02/19 [History] predniSONE [Prednisone] 5 mg PO ASDIRECTED 03/02/19 [History] Past Medical History Cardiovascular History: Reports: CT, Stents Respiratory History: Reports: Asthma, COPD Genitourinary History: Reports: None Musculoskeletal History: Reports: Arthritis, RA Neurological History: Reports: None Psychiatric History: Reports: None Endocrine/Metabolic History: Reports: None Hematologic History: Reports: None Oncologic (Cancer) History: Reports: None Dermatologic History: Reports: None - Infectious Disease History Infectious Disease History: Reports: Chicken Pox, MRSA - Past Surgical History HEENT Surgical History: Reports: Tonsillectomy GI Surgical History: Reports: Appendectomy, Bariatric Procedure, Cholecystectomy Other GI Surgeries/Procedures: pt reports mesh in stomache for hole in stomach Musculoskeletal Surgical History: Reports: Arthroscopic Knee, Hip Replacement, Knee Replacement Social & Family History - Family History Family Medical History: No Pertinent Family History - Tobacco Use Tobacco Use Status *Q: Current Every Day Tobacco User Years of Tobacco use: 20 Packs/Tins Daily: 0.5 - Caffeine Use Caffeine Use: Reports: Coffee, Soda - Recreational Drug Use Recreational Drug Use: No ED ROS GENERAL - Review of Systems Review Of Systems: See Below ED EXAM, GENERAL - Physical Exam Exam: See Below #1 Interpretation EKG Interpretation Comments: EKG: As interpreted by ER physician: Deann: Nonspecific ST-T wave abnormalities Normal axis No evidence of ST elevation CT Normal sinus rhythm heart rate of 87 November 02, 2020 12:12 AM Course - Vital Signs Last Recorded V/S: Last Vital Signs Temp 98.2 F 11/02/20 01:53 Pulse 95 11/02/20 02:50 Resp 20 11/02/20 01:53 BP 127/80 11/02/20 02:50 Pulse Ox 98 11/02/20 02:50 - Orders/Labs/Meds Orders: Active Orders 24 hr Category Date Time Status Sodium Chloride 0.9% [Saline Flush] Med 11/02/20 00:26 Active 10 ml FLUSH ASDIRECTED PRN Sodium Chloride 0.9% [Saline Flush] Med 11/02/20 00:26 Active 2.5 ml FLUSH ASDIRECTED PRN Isolation [COMM] Routine Oth 11/02/20 00:26 Active Saline Lock Insert [OM.PC] Stat Ot 11/02/20 00:26 Ordered Medication Orders Sodium Chloride (Sodium Chloride 0.9% 10 Ml Syringe) 10 ml FLUSH ASDIRECTED PRN PRN Reason: Keep Vein Open Last Admin: 11/02/20 00:57 Dose: 10 ml Documented by: MASOOD Sodium Chloride (Sodium Chloride 0.9% 2.5 Ml Syringe) 2.5 ml FLUSH ASDIRECTED PRN PRN Reason: Keep Vein Open Last Admin: 11/02/20 00:57 Dose: 2.5 ml Documented by: MASOOD Labs: Laboratory Tests 11/02/20 11/02/20 11/02/20 Range/Units 00:41 00:48 00:48 WBC 12.88 H (4.0-11.0) K/uL RBC 4.00 L (4.30-5.90) M/uL Hgb 9.9 L (12.0-16.0) g/dL Hct 31.1 L (36.0-46.0) % MCV 77.8 L (80.0-98.0) fL MCH 24.8 L (27.0-32.0) pg MCHC 31.8 (31.0-37.0) g/dL RDW Std Deviation 41.7 (28.0-62.0) fl RDW Coeff of Conor 15 (11.0-15.0) % Plt Count 564 H (150-400) K/uL MPV 9.10 (7.40-12.00) fL Neut % (Auto) 79.8 (48.0-80.0) % Lymph % (Auto) 9.0 L (16.0-40.0) % Hall % (Auto) 10.0 (0.0-15.0) % Eos % (Auto) 0.9 (0.0-7.0) % Baso % (Auto) 0.3 (0.0-1.5) % Neut # (Auto) 10.3 H (1.4-5.7) K/uL Lymph # (Auto) 1.2 (0.6-2.4) K/uL Hall # (Auto) 1.3 H (0.0-0.8) K/uL Eos # (Auto) 0.1 (0.0-0.7) K/uL Baso # (Auto) 0.0 (0.0-0.1) K/uL D-Dimer, Quantitative 0.69 H (0.0-0.50) mg/L FEU Sodium (136-145) mmol/L Potassium (3.5-5.1) mmol/L Chloride (98-107) mmol/L Carbon Dioxide (21.0-32.0) mmol/L BUN (7.0-18.0) mg/dL Creatinine (0.6-1.0) mg/dL Est Cr Clr Drug Dosing mL/min Estimated GFR (MDRD) ml/min Glucose (74-106) mg/dL Calcium (8.5-10.1) mg/dL Total Bilirubin (0.2-1.0) mg/dL AST (15-37) IU/L ALT (14-63) IU/L Alkaline Phosphatase (46-116) U/L Troponin I (0.000-0.056) ng/mL B-Natriuretic Peptide (<100) PG/ML Total Protein (6.4-8.2) g/dL Albumin (3.4-5.0) g/dL Globulin (2.6-4.0) g/dL Albumin/Globulin Ratio (0.9-1.6) SARS-CoV-2 RNA (BREANA) NEGATIVE (NEGATIVE) 11/02/20 11/02/20 Range/Units 00:48 00:48 WBC (4.0-11.0) K/uL RBC (4.30-5.90) M/uL Hgb (12.0-16.0) g/dL Hct (36.0-46.0) % MCV (80.0-98.0) fL MCH (27.0-32.0) pg MCHC (31.0-37.0) g/dL RDW Std Deviation (28.0-62.0) fl RDW Coeff of Conor (11.0-15.0) % Plt Count (150-400) K/uL MPV (7.40-12.00) fL Neut % (Auto) (48.0-80.0) % Lymph % (Auto) (16.0-40.0) % Hall % (Auto) (0.0-15.0) % Eos % (Auto) (0.0-7.0) % Baso % (Auto) (0.0-1.5) % Neut # (Auto) (1.4-5.7) K/uL Lymph # (Auto) (0.6-2.4) K/uL Hall # (Auto) (0.0-0.8) K/uL Eos # (Auto) (0.0-0.7) K/uL Baso # (Auto) (0.0-0.1) K/uL D-Dimer, Quantitative (0.0-0.50) mg/L FEU Sodium 138 (136-145) mmol/L Potassium 4.2 (3.5-5.1) mmol/L Chloride 103 (98-107) mmol/L Carbon Dioxide 26.6 (21.0-32.0) mmol/L BUN 13 (7.0-18.0) mg/dL Creatinine 1.0 (0.6-1.0) mg/dL Est Cr Clr Drug Dosing 57.41 mL/min Estimated GFR (MDRD) 56.9 ml/min Glucose 102 (74-106) mg/dL Calcium 7.6 L (8.5-10.1) mg/dL Total Bilirubin 0.6 (0.2-1.0) mg/dL AST 21 (15-37) IU/L ALT 22 (14-63) IU/L Alkaline Phosphatase 156 H (46-116) U/L Troponin I < 0.050 (0.000-0.056) ng/mL B-Natriuretic Peptide 2413 H (<100) PG/ML Total Protein 6.3 L (6.4-8.2) g/dL Albumin 2.9 L (3.4-5.0) g/dL Globulin 3.4 (2.6-4.0) g/dL Albumin/Globulin Ratio 0.9 (0.9-1.6) SARS-CoV-2 RNA (BREANA) (NEGATIVE) Meds: Medications Generic Name Dose Route Start Last Admin Trade Name Freq PRN Reason Stop Dose Admin Sodium Chloride 10 ml 11/02/20 00:26 11/02/20 00:57 Sodium Chloride 0.9% 10 Ml Syringe FLUSH 10 ml ASDIRECTED PRN Administration Keep Vein Open Sodium Chloride 2.5 ml 11/02/20 00:26 11/02/20 00:57 Sodium Chloride 0.9% 2.5 Ml Syringe FLUSH 2.5 ml ASDIRECTED PRN Administration Keep Vein Open Discontinued Medications Generic Name Dose Route Start Last Admin Trade Name Freq PRN Reason Stop Dose Admin Furosemide 80 mg 11/02/20 00:27 11/02/20 00:56 Furosemide 40 Mg/4 Ml Vial IVPUSH 11/02/20 00:28 80 mg NOW ONE Administration Iopamidol 75 ml 11/02/20 01:45 11/02/20 02:28 Iopamidol 755 Mg/Ml 500 Ml Multipack Bottle IVPUSH 11/02/20 01:46 75 ml ONETIME ONE Administration Ondansetron HCl 4 mg 11/02/20 00:52 11/02/20 00:56 Ondansetron 4 Mg/2 Ml Sdv IVPUSH 11/02/20 00:53 4 mg ONETIME ONE Administration Departure - Departure Time of Disposition: 03:59 Disposition: Home, Self-Care 01 Condition: Good Clinical Impression: Congestive heart failure Qualifiers: Heart failure type: unspecified Heart failure chronicity: acute Qualified Code(s): I50.9 - Heart failure, unspecified - Discharge Information Instructions: Heart Failure, Self Care, [id number], Heart Failure Exacerbation Referrals: Veronica Joya MD [Primary Care Provider] - Forms: ED Department Discharge Additional Instructions: You were seen and evaluated in ER today secondary to shortness of breath. Your test results and your CAT scan were indicative of increased fluid around your lungs. You were given an extra dose of Lasix here in the ED and it appears to have assisted with diuresis and helping you urinate. Your oxygen level currently is 98% on room air. Please make an appointment to see your family doctor in the next 1 to 2 days to be reevaluated so they can address your diuretics. Please return to the ED if you start having increased shortness of breath or any new or concerning symptoms. The following information is given to patients seen in the emergency department who are being discharged to home. This information is to outline your options for follow-up care. We provide all patients seen in our emergency department with a follow-up referral. The need for follow-up, as well as the timing and circumstances, are variable depending upon the specifics of your emergency department visit. If you don't have a primary care physician on staff, we will provide you with a referral. We always advise you to contact your personal physician following an emergency department visit to inform them of the circumstance of the visit and for follow-up with them and/or the need for any referrals to a consulting specialist. The emergency department will also refer you to a specialist when appropriate. This referral assures that you have the opportunity for follow-up care with a specialist. All of these measure are taken in an effort to provide you with optimal care, which includes your follow-up. Under all circumstances we always encourage you to contact your private physician who remains a resource for coordinating your care. When calling for follow-up care, please make the office aware that this follow-up is from your recent emergency room visit. If for any reason you are refused follow-up, please contact the [facility] Emergency Department at and asked to speak to the emergency department charge nurse. [facility] [address] [place] [id number] [address] Sepsis Event Note (ED) - Focused Exam Vital Signs: Vital Signs Temp Pulse Resp BP Pulse Ox 11/02/20 02:50 95 127/80 98 11/02/20 01:53 98.2 F 91 20 119/73 96 11/02/20 01:00 93 22 H 140/92 H 98 11/02/20 00:04 96 20 141/89 H 97 11/01/20 23:28 98.9 F 89 28 H 138/94 H 100 - My Orders Last 24 Hours: My Active Orders 11/02/20 00:26 Sodium Chloride 0.9% [Saline Flush] 10 ml FLUSH ASDIRECTED PRN Sodium Chloride 0.9% [Saline Flush] 2.5 ml FLUSH ASDIRECTED PRN Isolation [COMM] Routine Saline Lock Insert [OM.PC] Stat - Assessment/Plan Last 24 Hours: My Active Orders 11/02/20 00:26 Sodium Chloride 0.9% [Saline Flush] 10 ml FLUSH ASDIRECTED PRN Sodium Chloride 0.9% [Saline Flush] 2.5 ml FLUSH ASDIRECTED PRN Isolation [COMM] Routine Saline Lock Insert [OM.PC] Stat
== END 2020-11-02 04:20 | disposition home or self-care (01) ==
LOC: MW.ED 23:22
DX: I11.0 Hypertensive heart disease with heart failure (principal); I50.9 Heart failure, unspecified; J44.9 Chronic obstructive pulmonary disease, unspecified; I25.2 Old myocardial infarction; M06.9 Rheumatoid arthritis, unspecified; Z72.0 Tobacco use; Z88.5 Allergy status to narcotic agent; Z88.8 Allergy status to other drugs, medicaments and biological substances; Z79.82 Long term (current) use of aspirin; Z79.899 Other long term (current) drug therapy; Z20.822 Contact with and (suspected) exposure to COVID-19
CPT/HCPCS: 36415; 71045; 71275; 80053; 83880; 84484; 85025; 85379; 87804; 93005; 96374; 96375; 99285; J1940; J2405; Q9967; U0002

== ENCOUNTER 2020-11-28 17:39 | Emergency (ER) | payer MEDICARE ==
[2020-11-28] MEDS ORDERED: fentaNYL 50 MCG/ML SDV IVPUSH ONE ×2 (19:59→22:05)
--- NOTE | 2020-11-28 20:01 | EDM.PDOC ---
ED HPI GENERAL MEDICAL PROBLEM - General Chief Complaint: Abdominal Pain Stated Complaint: UPPER ABDOMINAL PAIN Time Seen by Provider: 11/28/20 19:24 Source of Information: Reports: Patient History Limitations: Reports: No Limitations - History of Present Illness INITIAL COMMENTS - FREE TEXT/NARRATIVE: Patient is a 60-year-old female history of gastric bypass presents today for upper abdominal pain. States pain started on Sunday has progressively got worse. Pain is made worse with eating. She also complains of some nausea but no vomiting. Denies fevers or chills. She also states the pain is abated makes difficult for her to breathe is causing some shortness of breath. She does not have a cough. She does not have any fevers diarrhea constipation or urinary symptoms. Bilateral Abdominal Pain Score (Numeric/FACES): 10 - Related Data Allergies Allergy/AdvReac Type Severity Reaction Status Date / Time gabapentin Allergy Hives Verified 11/28/20 19:15 morphine Allergy Nausea Verified 11/28/20 19:15 Home Meds: Home Meds Albuterol [Ventolin HFA] 1 puff .XX ASDIRECTED 03/02/19 [History] Aspirin 81 mg PO DAILY 03/02/19 [History] Fluticasone Propion/Salmeterol [Advair 250-50 Diskus] 1 each IH ASDIRECTED 03/02/19 [History] Nitroglycerin [Nitrostat] 0.4 mg SL ASDIRECTED 03/02/19 [History] Omeprazole 20 mg PO ONETIME 03/02/19 [History] Pramipexole [Mirapex] 0.25 mg PO BID 03/02/19 [History] Tocilizumab [Actemra] 162 mg SQ ASDIRECTED 03/02/19 [History] Venlafaxine HCl [Venlafaxine ER] 75 mg PO ASDIRECTED 03/02/19 [History] atorvaSTATin [Lipitor] 40 mg PO BEDTIME 03/02/19 [History] predniSONE [Prednisone] 5 mg PO ASDIRECTED 03/02/19 [History] Past Medical History Cardiovascular History: Reports: NE, Stents Respiratory History: Reports: Asthma, COPD Genitourinary History: Reports: None Musculoskeletal History: Reports: Arthritis, RA Neurological History: Reports: None Psychiatric History: Reports: None Endocrine/Metabolic History: Reports: None Hematologic History: Reports: None Oncologic (Cancer) History: Reports: None Dermatologic History: Reports: None - Infectious Disease History Infectious Disease History: Reports: Chicken Pox, MRSA - Past Surgical History HEENT Surgical History: Reports: Tonsillectomy GI Surgical History: Reports: Appendectomy, Bariatric Procedure, Cholecystectomy Other GI Surgeries/Procedures: pt reports mesh in stomache for hole in stomach Musculoskeletal Surgical History: Reports: Arthroscopic Knee, Hip Replacement, Knee Replacement Social & Family History - Family History Family Medical History: No Pertinent Family History - Tobacco Use Tobacco Use Status *Q: Current Every Day Tobacco User Years of Tobacco use: 30 Packs/Tins Daily: 0.5 - Caffeine Use Caffeine Use: Reports: Coffee - Recreational Drug Use Recreational Drug Use: Yes Drug Use in Last 12 Months: Yes Recreational Drug Type: Reports: Marijuana/Hashish ED ROS GENERAL - Review of Systems Review Of Systems: See Below Constitutional: Reports: No Symptoms HEENT: Reports: No Symptoms Respiratory: Reports: No Symptoms Cardiovascular: Reports: No Symptoms Endocrine: Reports: No Symptoms GI/Abdominal: Reports: Abdominal Pain : Reports: No Symptoms Musculoskeletal: Reports: No Symptoms Skin: Reports: No Symptoms Neurological: Reports: No Symptoms Psychiatric: Reports: No Symptoms Hematologic/Lymphatic: Reports: No Symptoms Immunologic: Reports: No Symptoms ED EXAM, GI/ABD - Physical Exam Exam: See Below Exam Limited By: No Limitations General Appearance: Alert, WD/WN, No Apparent Distress Eyes: Bilateral: EOMI Ears: Normal External Exam Throat/Mouth: Normal Inspection Neck: Normal Inspection Respiratory/Chest: No Respiratory Distress, Lungs Clear, Normal Breath Sounds Cardiovascular: Normal Peripheral Pulses, Regular Rate, Rhythm GI/Abdominal Exam: Normal Bowel Sounds, Tender (epigastric area) Back Exam: Normal Inspection Extremities: Normal Inspection, Normal Range of Motion Neurological: Alert, Oriented, Normal Cognition, Normal Gait #1 Interpretation EKG Date: 11/28/20 Time: 20:18 Rhythm: NSR Rate (Beats/Min): 88 QRS: Wide Course - Vital Signs Last Recorded V/S: Last Vital Signs Temp 98.7 F 11/28/20 19:24 Pulse 95 11/28/20 19:24 Resp 17 11/28/20 19:24 BP 151/103 H 11/28/20 19:24 Pulse Ox 97 11/28/20 19:24 - Orders/Labs/Meds Orders: Active Orders 24 hr Category Date Time Status Furosemide [Lasix] Med 11/28/20 23:36 Once 40 mg IVPUSH NOW ONE Labs: Laboratory Tests 11/28/20 11/28/20 11/28/20 Range/Units 19:40 19:40 20:20 WBC 7.81 (4.0-11.0) K/uL RBC 4.12 L (4.30-5.90) M/uL Hgb 10.1 L (12.0-16.0) g/dL Hct 31.6 L (36.0-46.0) % MCV 76.7 L (80.0-98.0) fL MCH 24.5 L (27.0-32.0) pg MCHC 32.0 (31.0-37.0) g/dL RDW Std Deviation 44.3 (28.0-62.0) fl RDW Coeff of Conor 16 H (11.0-15.0) % Plt Count 410 H (150-400) K/uL MPV 9.70 (7.40-12.00) fL Neut % (Auto) 66.8 (48.0-80.0) % Lymph % (Auto) 20.5 (16.0-40.0) % Gregory % (Auto) 10.4 (0.0-15.0) % Eos % (Auto) 1.7 (0.0-7.0) % Baso % (Auto) 0.6 (0.0-1.5) % Neut # (Auto) 5.2 (1.4-5.7) K/uL Lymph # (Auto) 1.6 (0.6-2.4) K/uL Gregory # (Auto) 0.8 (0.0-0.8) K/uL Eos # (Auto) 0.1 (0.0-0.7) K/uL Baso # (Auto) 0.1 (0.0-0.1) K/uL Nucleated RBC % 0.0 /100WBC Nucleated RBCs # 0 K/uL Sodium 140 (136-145) mmol/L Potassium 3.9 (3.5-5.1) mmol/L Chloride 103 (98-107) mmol/L Carbon Dioxide 26.0 (21.0-32.0) mmol/L BUN 16 (7.0-18.0) mg/dL Creatinine 0.8 (0.6-1.0) mg/dL Est Cr Clr Drug Dosing 71.76 mL/min Estimated GFR (MDRD) > 60.0 ml/min Glucose 105 (74-106) mg/dL Lactic Acid 1.8 (0.4-2.0) mmol/L Calcium 8.2 L (8.5-10.1) mg/dL Phosphorus 3.7 (2.6-4.7) mg/dL Magnesium 1.8 (1.8-2.4) mg/dL Total Bilirubin 0.7 (0.2-1.0) mg/dL AST 37 (15-37) IU/L ALT 48 (14-63) IU/L Alkaline Phosphatase 170 H (46-116) U/L Creatine Kinase 90 (26-308) U/L Troponin I < 0.050 (0.000-0.056) ng/mL Total Protein 6.6 (6.4-8.2) g/dL Albumin 3.3 L (3.4-5.0) g/dL Globulin 3.3 (2.6-4.0) g/dL Albumin/Globulin Ratio 1.0 (0.9-1.6) Lipase 50 L (73-393) U/L Meds: Medications Discontinued Medications Generic Name Dose Route Start Last Admin Trade Name Dolly PRN Reason Stop Dose Admin Fentanyl 25 mcg 11/28/20 19:59 11/28/20 20:28 Fentanyl 50 Mcg/Ml Sdv IVPUSH 11/28/20 20:00 25 mcg ONETIME ONE Administration Fentanyl 25 mcg 11/28/20 22:05 11/28/20 22:39 Fentanyl 50 Mcg/Ml Sdv IVPUSH 11/28/20 22:06 25 mcg ONETIME ONE Administration Iopamidol 100 ml 11/28/20 20:43 11/28/20 20:56 Iopamidol 755 Mg/Ml 500 Ml Multipack Bottle IVPUSH 11/28/20 20:44 100 ml ONETIME ONE Administration Ondansetron HCl 4 mg 11/28/20 22:05 11/28/20 22:45 Ondansetron 4 Mg/2 Ml Sdv IVPUSH 11/28/20 22:06 4 mg ONETIME ONE Administration - Re-Assessments/Exams Free Text/Narrative Re-Assessment/Exam: 11/28/20 23:[address] does show some trace ascites. There is no abdominal distention. No signs of was causing this ascites. Patient CT essentially negative. Her pain is mostly in the epigastric area. LFTs reviewed. Patient he was tolerating p.o. looks well and will give patient strict return precautions. We also did a lactate which is normal no elevated white count. Patient made aware and will be given strict return precautions again. Departure - Departure Time of Disposition: 23:37 Disposition: Home, Self-Care 01 Condition: Good Clinical Impression: Abdominal pain - Discharge Information *PRESCRIPTION DRUG MONITORING PROGRAM REVIEWED*: Not Applicable *COPY OF PRESCRIPTION DRUG MONITORING REPORT IN PATIENT SHEFALI: Not Applicable Instructions: Abdominal Pain, Adult, [id number] Referrals: Veronica Joya MD [Primary Care Provider] - Forms: ED Department Discharge Additional Instructions: The following information is given to patients seen in the emergency department who are being discharged to home. This information is to outline your options for follow-up care. We provide all patients seen in our emergency department with a follow-up referral. The need for follow-up, as well as the timing and circumstances, are variable depending upon the specifics of your emergency department visit. If you don't have a primary care physician on staff, we will provide you with a referral. We always advise you to contact your personal physician following an emergency department visit to inform them of the circumstance of the visit and for follow-up with them and/or the need for any referrals to a consulting specialist. The emergency department will also refer you to a specialist when appropriate. This referral assures that you have the opportunity for follow-up care with a specialist. All of these measure are taken in an effort to provide you with opt imal care, which includes your follow-up. Under all circumstances we always encourage you to contact your private physician who remains a resource for coordinating your care. When calling for follow-up care, please make the office aware that this follow-up is from your recent emergency room visit. If for any reason you are refused follow-up, please contact the [facility] Emergency Department at and asked to speak to the emergency department charge nurse. Please follow up with your primary care physician. If you do not have a primary care physician, see below: [facility] [address] [place] [address] My [facility] [address] [place] [address] You are seen today for demetrius pain. We did a CAT scan did not show any obvious cause of your upper abdominal pain. You do have some trace fluid inside your abdomen which are unsure where he came from you do not have any elevated white blood cell count or fever. If you do develop any fevers increased pain please return to the ED immediately. Sepsis Event Note (ED) - Focused Exam Vital Signs: Vital Signs Temp Pulse Resp BP Pulse Ox 11/28/20 19:24 98.7 F 95 17 151/103 H 97 - My Orders Last 24 Hours: My Active Orders 11/28/20 23:36 Furosemide [Lasix] 40 mg IVPUSH NOW ONE - Assessment/Plan Last 24 Hours: My Active Orders 11/28/20 23:36 Furosemide [Lasix] 40 mg IVPUSH NOW ONE Plan: Patient is a 60-year-old female he presents today for abdominal pain. Patient has history of gastric bypass and states she has constipation in the past has not had any problems in the past few years. We will obtain labs CT scan provide pain control and reassess.
[2020-11-28 20:19] LABS: BLOOD UREA NITROGEN,BUN 16 mg/dL (7.0-18.0); CHLORIDE,CL 103 mmol/L (98-107); GLUCOSE RANDOM 105 mg/dL (74-106); LIPASE 50 U/L (73-393); POTASSIUM,K 3.9 mmol/L (3.5-5.1); SODIUM,NA 140 mmol/L (136-145)
[2020-11-28] MEDS ORDERED: Iopamidol 755 MG/ML 500 ML Multipack Bottle IVPUSH ONE (20:43)
--- NOTE | 2020-11-28 20:55 | CR ---
INDICATION: Chest pain. TECHNIQUE: AP chest. COMPARISON: 11/02/2020. FINDINGS: Stable cardiomegaly. Pulmonary vascular congestion pattern is again noted. No airspace opacities to suggest pneumonia. No pleural fluid is seen on this single view study. No pneumothorax. IMPRESSION: Cardiomegaly with mild pulmonary vascular congestion. Dictated by Joseluis De La O MD @ 11/28/2020 8:55:01 PM Dictated by: Joseluis De La O MD @ 11/28/2020 20:55:13 (Electronically Signed)
[2020-11-28] MEDS ORDERED: Ondansetron 4 MG/2 ML SDV IVPUSH ONE (22:05)
--- NOTE | 2020-11-28 22:59 | CT ---
INDICATION: Abdominal pain TECHNIQUE: Axial images were obtained from the diaphragm to the pubic symphysis. Reformats were obtained in the coronal and sagittal plane. IV Contrast: 100 cc Isovue 370 Oral Contrast: None COMPARISON: Chest CT 11/02/2020 FINDINGS: Lower chest: Trace right pleural effusion. Basilar discoid atelectasis. Liver: Unremarkable. Normal in size and attenuation. No masses. Gallbladder and bile ducts: Status post cholecystectomy. Spleen: Unremarkable. Normal in size without mass. Pancreas: Unremarkable. No mass or inflammation. Adrenal glands: Unremarkable. No nodules. Kidneys: Left renal scarring without evidence of hydronephrosis. Right renal cyst. Vasculature: Atherosclerosis without abdominal aortic aneurysm. GI tract: Trace ascites status post gastric bypass. No dilated loops of large or small intestine. Pelvis: Unremarkable. Bones: Status post left total hip replacement. Grade 1 anterolisthesis L5-S1, likely secondary to facet arthropathy. IMPRESSION: 1. Trace ascites of uncertain etiology. This is a new finding compared to the CT chest of 1 month prior. 2. Status post gastric bypass without evidence of obstruction or clear localizing inflammation. 3. Trace right pleural effusion. Please note that all CT scans at this facility use dose modulation, iterative reconstruction, and/or weight-based dosing when appropriate to reduce radiation dose to as low as reasonably achievable. Dictated by Riccardo Ellis MD @ 11/28/2020 10:57:33 PM (Electronically Signed)
[2020-11-28] MEDS ORDERED: Furosemide 40 MG/4 ML VIAL IVPUSH ONE (23:36)
== END 2020-11-28 23:53 | disposition home or self-care (01) ==
LOC: MW.ED 17:39
DX: R10.13 Epigastric pain (principal); R11.0 Nausea; Z88.5 Allergy status to narcotic agent; J44.9 Chronic obstructive pulmonary disease, unspecified; Z72.0 Tobacco use; Z79.82 Long term (current) use of aspirin; Z79.899 Other long term (current) drug therapy
CPT/HCPCS: 36415; 71045; 74177; 80053; 82550; 83605; 83690; 83735; 84100; 84484; 85025; 93005; 96374; 96375; 99284; J1940; J2405; J3010; Q9967

== ENCOUNTER 2022-08-18 13:21 | Emergency (ER) | payer MEDICARE, OTHER, MEDICAID ==
[2022-08-18 14:41] LABS: APPEARANCE,URINE CLOUDY; COLOR,URINE ORANGE; GLUCOSE,URINE 250 mg/dL (NEGATIVE); KETONES,URINE 15 mg/dL (NEGATIVE); LEUKOCYTE ESTERASE,URINE LARGE (NEGATIVE); NITRITE,URINE POSITIVE (NEGATIVE); OCCULT BLOOD,URINE TRACE-INTACT (NEGATIVE); PH,URINE 6.5 (5.0-8.0); PROTEIN,URINE >=300 mg/dL (NEGATIVE); UROBILINOGEN,URINE >=8.0 EU/dL (<2.0)
[2022-08-18 14:54] LABS: BASOPHILS PERCENT AUTO 0.7 % (0.0-1.5); EOSINOPHILS ABSOLUTE AUTO 0.3 K/uL (0.0-0.7); EOSINOPHILS PERCENT AUTO 5.2 % (0.0-7.0); HEMATOCRIT 36.4 % (36.0-46.0); HEMOGLOBIN 11.3 g/dL (12.0-16.0); LYMPHOCYTES ABSOLUTE AUTO 2.3 K/uL (0.6-2.4); LYMPHOCYTES PERCENT AUTO 39.5 % (16.0-40.0); MEAN CORPUSCULAR HEMOGLOBIN 28.3 pg (27.0-32.0); MEAN CORPUSCULAR VOLUME 91.2 fL (80.0-98.0); MONOCYTES ABSOLUTE AUTO 0.7 K/uL (0.0-0.8); MONOCYTES PERCENT AUTO 11.9 % (0.0-15.0); NEUTROPHILS ABSOLUTE AUTO 2.4 K/uL (1.4-5.7); NEUTROPHILS PERCENT AUTO 42.7 % (48.0-80.0); NRBC ABSOLUTE 0 K/uL; PLATELET COUNT,PLT 493 K/uL (150-400); RED BLOOD CELL COUNT 3.99 M/uL (4.30-5.90); WHITE BLOOD CELL COUNT,WBC 5.72 K/uL (4.0-11.0)
[2022-08-18 15:09] LABS: BILIRUBIN,URINE MODERATE (NEGATIVE)
[2022-08-18 15:15] LABS: A/G RATIO 0.7 (0.9-1.6); ALBUMIN 2.7 g/dL (3.4-5.0); BILIRUBIN TOTAL 0.3 mg/dL (0.2-1.0); CALCIUM 8.1 mg/dL (8.5-10.1); CARBON DIOXIDE,CO2 26.5 mmol/L (21.0-32.0); CREATININE 0.9 mg/dL (0.6-1.0); EST CRCL DRUG DOSING (CG) 62.23 mL/min; POTASSIUM,K 4.7 mmol/L (3.5-5.1); PROTEIN TOTAL,TP 6.4 g/dL (6.4-8.2)
[2022-08-18 15:15] LABS: BACTERIA,URINE MANY (NEGATIVE); EPITHELIAL CELLS,URINE FEW (NONE-FEW); MUCUS,URINE LIGHT (NONE-MOD); WBC,URINE TO NUMEROUS TO COUNT (0-5/HPF)
[2022-08-18] MEDS ORDERED: Phenazopyridine 200 MG Tab PO ONE (15:48)
[2022-08-18] MEDS ORDERED: Iopamidol 755 Mg/ML 100 ML Bottle IVPUSH ONE (16:32)
[2022-08-18] MEDS: Acetaminophen 500 MG Tab PO ONE ×2 (16:35→16:39)
[2022-08-18] MEDS ORDERED: oxyCODONE 5 MG Tab PO ONE (16:43)
[2022-08-18] MEDS ORDERED: Ketorolac 30 MG/ML SDV IVPUSH ONE (18:01)
[2022-08-18] MEDS ORDERED: Levofloxacin 500 MG Tab PO ONE (18:02)
== END 2022-08-18 18:20 | disposition home or self-care (01) ==
LOC: MW.ED 13:21
DX: N39.0 Urinary tract infection, site not specified (principal); J45.909 Unspecified asthma, uncomplicated; I25.2 Old myocardial infarction; Z72.0 Tobacco use; Z88.5 Allergy status to narcotic agent; Z88.8 Allergy status to other drugs, medicaments and biological substances; Z79.82 Long term (current) use of aspirin; Z79.899 Other long term (current) drug therapy
CPT/HCPCS: 36415; 72128; 72131; 74177; 80053; 81001; 83690; 85025; 87086; 87088; 87186; 96374; 99284; A9270; J1885; Q9967

== ENCOUNTER 2024-09-05 04:42 | Emergency (ER) | payer MEDICAID, MEDICARE ==
[2024-09-05] MEDS: Ondansetron 4 MG/2 ML SDV IVPUSH ONE (05:11)
[2024-09-05 05:17] LABS: MEAN PLATELET VOLUME 9.2 fL (9.4-12.3); NRBC ABSOLUTE 0.02 K/uL (0.00-0.02); NRBC PERCENT 0.1 /100WBC (0.0-0.2); PLATELET COUNT,PLT 513 K/uL (150-400); RED BLOOD CELL COUNT 3.87 M/uL (4.10-5.30); WHITE BLOOD CELL COUNT,WBC 20.61 K/uL (3.9-11.3)
[2024-09-05] MEDS: Ketorolac 30 MG/ML SDV IVPUSH ONE (05:43)
[2024-09-05] MEDS: fentaNYL 50 MCG/ML SDV IVPUSH ONE (05:43)
[2024-09-05 05:44] LABS: A/G RATIO 0.6 (0.9-1.6); ALANINE AMINOTRANSFERASE,ALT 12.0 IU/L (14-63); ASPARTATE AMNIOTRANSFERASE,AST 15.0 IU/L (15-37); BILIRUBIN TOTAL 0.3 mg/dL (0.2-1.0); BLOOD UREA NITROGEN,BUN 13.0 mg/dL (7.0-18.0); CARBON DIOXIDE,CO2 28.3 mmol/L (21.0-32.0); CHLORIDE,CL 103.0 mmol/L (98-107); CREATININE 0.7 mg/dL (0.6-1.0); EST CRCL DRUG DOSING (CG) 78.01 mL/min; GLUCOSE RANDOM 85.0 mg/dL (74-106); POTASSIUM,K 3.4 mmol/L (3.5-5.1); PROTEIN TOTAL,TP 6.1 g/dL (6.4-8.2); SODIUM,NA 140.0 mmol/L (136-145)
[2024-09-05] MEDS: cefTRIAXone 2 GM in Water For Injection, Sterile 20 ML IVPUSH ONE (05:44)
[2024-09-05 05:51] LABS: ESTIMATED GFR 98.0 mL/min (>60)
[2024-09-05 06:22] LABS: BASOPHILS ABSOLUTE MAN 0.00 K/uL (0.00-0.20); BASOPHILS PERCENT MAN 0 % (0-1); EOSINOPHILS ABSOLUTE MAN 0.00 K/uL (0.00-0.45); EOSINOPHILS PERCENT MAN 0 % (0-6); LYMPHOCYTES ABSOLUTE MAN 2.47 K/uL (1.00-4.80); LYMPHOCYTES PERCENT MAN 12 % (24-44); MONOCYTES ABSOLUTE MAN 1.85 K/uL (0.00-0.80); MONOCYTES PERCENT MAN 9 % (0-8); SEG NEUTROPHILS ABSOLUTE MAN 16.28 K/uL (1.80-7.70); SEG NEUTROPHILS PERCENT MAN 79 % (41-71)
[2024-09-05] MEDS: VANCOmycin 1.75 GM/350 ML 350 ML IV ONE (06:24)
[2024-09-05] MEDS: Iopamidol 755 MG/ML 500 ML Multipack Bottle IVPUSH STA (06:52)
[2024-09-05] MEDS: Lactated Ringers 1,000 ML IV SCH (08:40)
[2024-09-05] MEDS ORDERED: Sodium Chloride 0.9% 2.5 ML Syringe FLUSH PRN (08:54)
[2024-09-05] MEDS ORDERED: Ondansetron 4 MG/2 ML SDV IVPUSH PRN (08:54)
[2024-09-05] MEDS ORDERED: Naloxone 0.4 MG/ML SDV IVPUSH PRN (08:54)
[2024-09-05] MEDS ORDERED: Sodium Chloride 0.9% 10 ML Syringe FLUSH PRN (08:54)
[2024-09-05 09:40] LABS: CHOLESTEROL HDL 41.0 mg/dL (40-60); CHOLESTEROL LDL CALCULATED 54.0 mg/dL (60-180); CHOLESTEROL TOTAL 106.0 mg/dL (50-200); VLDL CHOLESTEROL 11.0 mg/dL (5-55)
[2024-09-05] MEDS: Lidocaine 1% with EPINEPHrine 1:100,000 10 ML MDV INFILT ONE (09:56)
[2024-09-05] MEDS: Pantoprazole 40 MG in Sodium Chloride 0.9% 10 ML IVPUSH SCH (10:07)
== END 2024-09-05 12:38 | disposition critical access hospital (66) ==
LOC: MW.ED 04:42
DX: L02.211 Cutaneous abscess of abdominal wall (principal); L03.311 Cellulitis of abdominal wall; D84.821 Immunodeficiency due to drugs; J44.89 Other specified chronic obstructive pulmonary disease; I25.2 Old myocardial infarction; Z88.5 Allergy status to narcotic agent; Z88.8 Allergy status to other drugs, medicaments and biological substances; Z79.51 Long term (current) use of inhaled steroids; Z79.82 Long term (current) use of aspirin; Z79.899 Other long term (current) drug therapy; Z95.5 Presence of coronary angioplasty implant and graft; Z98.84 Bariatric surgery status
CPT/HCPCS: 10060; 36415; 74177; 74177-26; 80053; 80061; 83036; 83605; 83880; 85025; 85652; 86140; 87040; 87070; 87075; 87077; 87186; 87205; 93005; 96365; 96375; 99284; 99285-25; A9270-GY; J0692; J0696; J1171; J1885; J2003; J2405; J2470; J3010; J3372; J7120; Q9967

== ENCOUNTER 2024-10-20 17:52 | Emergency (ER) | payer MEDICAID ==
[2024-10-20] MEDS: Ketorolac 30 MG/ML SDV IM ONE (19:10)
[2024-10-20] MEDS: Orphenadrine 60 MG/2 ML Inj IM ONE (19:10)
== END 2024-10-20 20:07 | disposition home or self-care (01) ==
LOC: MW.ED 17:52
DX: M25.551 Pain in right hip (principal); I25.2 Old myocardial infarction; J44.89 Other specified chronic obstructive pulmonary disease; M19.90 Unspecified osteoarthritis, unspecified site; F17.200 Nicotine dependence, unspecified, uncomplicated; Z90.49 Acquired absence of other specified parts of digestive tract; Z98.84 Bariatric surgery status; Z88.5 Allergy status to narcotic agent; Z88.8 Allergy status to other drugs, medicaments and biological substances; Z79.51 Long term (current) use of inhaled steroids; Z79.82 Long term (current) use of aspirin; Z79.899 Other long term (current) drug therapy; Z75.3 Unavailability and inaccessibility of health-care facilities
CPT/HCPCS: 96372; 99283; A9270; J1100; J1885; J2360